=== PATIENT | female | born 1975 | race Caucasian/White ===

== ENCOUNTER 2024-07-17 13:32 | Emergency (ER) | payer SELFPAY ==
[2024-07-17 13:43] VITALS: BP 168/80; PULSE 91; RESP 18; TEMP 36.8; O2SAT 98; BMI 31.7
[2024-07-17 13:53] VITALS: BP 168/80; PULSE 91; RESP 18; TEMP 36.8; O2SAT 98
--- NOTE | 2024-07-17 13:53 | ED_ITS ---
HPI - Dental/Oral General Chief complaint: Dental/Oral Stated complaint: IV Antibiotics Sent by Urgent Care Time Seen by Provider: 07/17/24 13:49 Source: patient Mode of arrival: ambulatory Limitations: no limitations History of Present Illness ED Provider: ARIELLE LOZANO PA-C HPI Narrative: 48 year old female presents to the ED today requesting IV antibiotics. She reports following up with her dentist this morning for dental pain and left lower cheek swelling which began last night. She was prescribed PO antibiotics which she states were sent to her pharmacy today. She cannot recall the name of these. She has not yet picked up this prescription. She reports being told by her dentist to come to the ED for IV antibiotics because she needed something to work faster . She denies any associated fever, chills, odynophagia, dysphagia, neck pain. MD Complaint: tooth pain Related Data Allergies Allergy/AdvReac Type Severity Reaction Status Date / Time No Known Allergies Allergy Verified 07/17/24 13:47 Review of Systems Review of Systems: Constitutional: No fever, chills, fatigue, night sweats, weight changes ENT/Mouth: No ear pain, hearing loss, nasal congestion, sinus pain, rhinorrhea, sore throat, +dental pain Eyes: No eye pain, swelling, redness, vision changes, discharge Cardio: No chest pain, palpitations, HALL, orthopnea, peripheral edema Pulm: No SOB, cough, sputum, wheezing, dyspnea, hemoptysis GI: No nausea, vomiting, hematemesis, abdominal pain, diarrhea, constipation, hematochezia, melena : No irregular bleeding, dysuria, frequency, urgency, hesitancy, hematuria, flank pain, urinary flow changes, urinary incontinence or retention MSK: No back pain, neck pain, joint pain, myalgias Skin: No lesions, rashes Neuro: No weakness, numbness, paresthesias, LOC, dizziness, headache Psych: No anxiety/panic, depression, SI/HI, AH/VH All other systems reviewed and are negative. [facility] Past Medical History Attestation statement: The following information was validated with the patient. Source: old records reviewed and nursing notes reviewed Social History Social History Advance Directives: No Advance Directives Information Provided: Yes Do you have a plan to hurt others: No Plan Physical Exam Vital Signs: Vital Signs: Last Vital Signs Temp 98.3 F 07/17/24 13:53 Pulse 91 07/17/24 13:53 Resp 18 07/17/24 13:53 BP 168/80 H 07/17/24 13:53 Pulse Ox 98 07/17/24 13:53 O2 Del Method Room Air 07/17/24 13:53 BMI result Body Mass Index 31.7 Hypertensive, afebrile General: Well appearing, in no acute distress. Skin: Warm, dry, intact. No rashes or lesions. Head: Normocephalic, atraumatic. EENT: Hearing is intact b/l. Conjunctiva clear. Sclera is anicteric. PERRLA. EOM intact. +minimal swelling noted to L cheek. Tong ue and lips wnl. multiple dental caries and poor dentition. left lower #20-21 with localized periapical swelling to the buccal ginginva. No pointing. No active bleeding/ discharge. TTP. No palpable fluctuance. minimal edema to buccal mucosa without palpable fluctuance. Posterior oropharynx without erythema/edema. Uvula midline. Controlling secretions and speaking in complete sentences. No submandublar, submental or cervical LAD. no anterior neck swelling. Cardiac: Chest wall symmetric. RRR Lungs: Normal respiratory effort without accessory muscle use. CTA bilaterally Ext: Upper and lower extremities atraumatic, without tenderness, deformity, swelling or erythema. Full ROM throughout Neuro: AOx3. Normal speech. Ambulating with steady gait. Psych: Appropriate mood and affect. Responds appropriately to questions. Course Course Course Narrative: Patient noted to have dental infection. There is no evidence of abscess that warrants drainage at this time. Patient states a prescription for antibiotics was written for her by her dentist today. She has the written script in her car. Can not recall the name of this antibiotic. Advised to trial p.o. antibiotics. I do not see any indication for IV antibiotics/ admission. there is no concern for abscess or ludwigs angina. she has a follow up appointment with her dentist in 1 week for tooth extraction. Patient has remained stable throughout ED visit today. I discussed worrisome signs and symptoms and when to return to the ED. All questions answered at this time. Patient is agreeable with disposition and stable for discharge. Medical Decision Making Medical Decision Making MDM Narrative: 48 year old female presents to the ED today requesting IV antibiotics for dental infection. hypertensive, vitals are otherwise wnl. she is afebrile, well appearing and in NAD. no respiratory distress, airway patent. on exam minimal swelling noted to L cheek. Tongue and lips wnl. multiple dental caries and poor dentition. left lower #20-21 with localized periapical swelling to the buccal ginginva. No pointing. No active bleeding/ discharge. TTP. No palpable fluctuance. minimal edema to buccal mucosa without palpable fluctuance. Posterior oropharynx without erythema/edema. Uvula midline. Controlling secretions and speaking in complete sentences. No submandublar, submental or cervical LAD. no anterior neck swelling. Differential includes dental/ periapical infection. Unlikely mono, herpes, sialadenitis, sialolithiasis, dental abscess, [employer]OTECTION [employer], retropharyngeal abscess, deep neck infection, osteomyelitis, facial cellulitis/ abscess, lymphoma. Plan for pain control and discharge home with antibiotics and dentist follow up. Differential Diagnosis Differential Diagnoses: The differential diagnosis associated with the presentation includes as above. Admission/Observation Not indicated. Tests considered The following testing was considered but not selected: I considered obtaining a CT of the soft tissues neck however these is no evidence of ludwigs angina or concern for deep tissue infection. Not warranted at this time. No labs warranted. Prescription Management I considered prescription management with: Pain Medication and Antibiotic Social Determinants Patient?s care significantly limited by Social Determinants of Health including: Other Social Determinant of Health Critical Care Time Critical Care Time Critical Care Time: No Discharge Plan Discharge Clinical Impression: Dental infection Patient Disposition: Home, Self-Care Instructions: Toothache (ED), Mouth Care (ED) Additional Instructions: You were evaluated in ED today for dental pain. You have a dental infection. Your vitals are stable and exam is reassuring. Take the antibiotics that were prescribed to you to completion. Take this as prescribed and do not skip any doses. Take tylenol/ motrin at home as needed for pain. Make sure you follow up with your dentist. You have been provided with a referral to [facility]. They are currently taking new clients. Call them to make an appointment. They will not call you. Return with new or worsening symptoms. In the case of an emergency call 911. [facility]: [phone] [id number] [id number] Interventions: ED Discharge Assessment Last Done: 07/17/24 13:53 Discharge Date/Time: 07/17/24 13:55 Print Language: Korean
== END 2024-07-17 13:55 | disposition home or self-care (01) ==
PROVIDERS: Emergency Provider Emergency Medicine
DX: K04.7 Periapical abscess without sinus (principal)
CPT/HCPCS: 99282

== ENCOUNTER 2025-01-26 10:37 | Emergency (ER) | payer OTHER, SELFPAY ==
--- NOTE | ~2025-01-26 | XR_ITS ---
EXAMINATION: XR CHEST CLINICAL INFORMATION: cough COMPARISON: None available. TECHNIQUE: PA and lateral views. FINDINGS: Prominence of the interstitial markings. No hyperinflation. No consolidation, pleural effusion or pneumothorax. Cardiomediastinal silhouette size is normal. Mild multilevel thoracic spondylosis. XR/XR chest 2V IMPRESSION: Concerning acute small airway inflammatory process in the correct clinical settings. Electronically signed by: Jose Carlos Arrieta MD 01/26/2025 11:38 AM EST
--- NOTE | 2025-01-26 11:11 | ED_ITS ---
HPI - Dizziness General Chief Complaint: General Medical Stated Complaint: lightheaded, numbness in arms, body aches Time Seen by Provider: 01/26/25 17:51 Source: patient Mode of arrival: ambulatory Limitations: no limitations History of Present Illness ED Provider: Sirena Loya NP HPI Narrative: 49-year-old female with no significant medical history presents to the ED with chief complaint of feeling sick for the past 1-2 weeks, with an episode of vomiting that occurred at this morning. Patient reports that she is coughing, though it is nonproductive. She denies any specific chest pain, pressure, or palpitations. Reports a remote history of hypothyroidism but has not been on medications for several years given lack of insurance. Endorsing prior subjective fever and chills, but none actively. Her 2 daughters have also been sick with similar illnesses. Denies any abnormal skin rash, though does note that the lower legs has had small red simeon on them for about a week. No abdominal pain, nausea or vomiting, urinary complaints. No dizziness or lightheadedness, visual disturbances, room spinning sensation. Related Data Previous Rx's ?Medication ?Instructions ?Recorded prednisone 20 mg tablet 40 mg (2 x 20 mg) PO DAILY 5 days 01/26/25 #10 tabs Allergies Allergy/AdvReac Type Severity Reaction Status Date / Time No Known Allergies Allergy Verified 01/26/25 11:13 Review of Systems 2 Review of Systems: ROS is otherwise negative unless mentioned in HPI. [facility], [facility] Social History Social History Advance Directives: No Advance Directives Information Provided: No Physical Exam 2 Exam: Exam: Nursing notes and vital signs reviewed. Constitutional: Well-appearing, NAD. Alert. Oriented X3. Eyes: EOMI. ENT: Pharynx normal. Neck: Normal inspection. Neck supple. CVS: Normal heart rate and rhythm. Pulses normal. Respiratory: No respiratory distress. Breath sounds normal. Abdomen: Nondistended. Skin: Skin warm and dry. Normal skin color. Extremities: No lower extremity edema. Neuro: Oriented X 3. No motor deficit. Vital Signs: Vital Signs: Last Vital Signs Temp 98 F 01/26/25 11:12 Pulse 97 01/26/25 11:12 Resp 16 01/26/25 11:12 BP 200/89 H 01/26/25 11:12 Pulse Ox 100 01/26/25 11:12 O2 Del Method Room Air 01/26/25 11:12 BMI result Body Mass Index 31.6 Course Course Course Narrative: 49 yo female with no past medical history who has not been feeling well for 2 weeks, was exposed to the flu by her daughter. She reports she feels really weak. She threw up once today, lighttheaded. She is able to eat and drink but has a poor appetite. She keeps losing her voice but no sore throat. She has body aches. She has numbness in both arms and hands but more so in the right. SHe never had diarrhea. She she has no recent travel. She also notes a rash red dots on both legs. Her last year was about 1 week ago. Going to obtain reid labs, chest x-ray, urine, viral panel studies, Lyme series this is a RAPID medical screening exam the rest of the history and physical exam is to be done by the main provider. 11:14 AM 01/26/2025 (JOHNATHAN YE): Medical Decision Making Medical Decision Making [facility] Narrative: 6:49 PM 01/26/2025 (Sirena Loya NP): Upon my assessment of the patient, she overall appears well. Answering questions appropriately. She was seen by the triage provider. I reviewed the lab work at time of my assessment. CK is normal, COVID flu RSV is negative. Tick-borne illness panel will be sent out. [place] screen is negative. TSH is mildly high, but free T4 is flat. Possibly subclinical hypothyroidism, though less likely. She has a history of hypothyroid but does not have medication for several years, given lack of insurance. I will list her PCP to follow up with, as I offered doing T3 retesting in the ER today via send out, but she declined. I believe this is less likely a diagnoses of hypothyroidism. Additionally, she has some anemia. Her H&H here stable though at 8.2 and 30.2. We will need a repeat outpatient. Platelet counts are mildly high at 528, can also be checked again outpatient. Mild leukocytosis to 12, nonspecific. X-ray of chest shows no acute pneumonia. Does suggest reactive airway disease. This does appear to be viral in nature. Lungs CTA, normal heart sounds. Given the length of her symptoms, we will plan to treat the patient with oral prednisone. First dose given in the ED, and a prescription for this medication was provided as well. She expressed understanding with plan of care, it was given return precautions to the ED as well as PCP follow up. Differential Diagnosis Differential Diagnoses: The differential diagnosis associated with the presentation includes Lyme disease, mononucleosis, viral illness, pneumonia, anemia Admission/Observation Consideration of admission/observation: Escalation of care including admission/observation considered (Not indicated) Lab Data MDM Lab Attestation statement: I reviewed the patient's lab results. (Overall reassuring.) 01/26/25 11:41 01/26/25 11:41 Labs: Lab Results 01/26/25 Range/Units 11:41 WBC 12.0 H (4.8-10.8) X10*3/uL RBC 4.44 (4.20-5.50) X10*6/uL Hgb 8.2 L (12.0-16.0) g/dl Hct 30.2 L (37.0-47.0) % MCV 68.0 L (80.0-98.0) fL MCH 18.5 L (27.0-33.0) pg MCHC 27.2 L (31.0-35.0) g/dl RDW 22.0 H (11.0-16.0) % Plt Count 528 H (160-400) X10*3/uL MPV 9.7 (9.4-12.3) fL Immature Gran % (Auto) 1.3 H (0.0-0.4) % Neut % (Auto) 76.1 H (45-73) % Lymph % (Auto) 13.9 L (20-40) % [place] % (Auto) 6.7 (2-11) % Eos % (Auto) 1.7 (0-4) % Baso % (Auto) 0.3 (0-2) % Lymph # (Auto) 1.7 (1.2-4.9) X10*3/uL [place] # (Auto) 0.8 (0.1-1.2) X10*3/uL Eos # (Auto) 0.2 (0.0-0.4) X10*3/uL Baso # (Auto) 0.0 (0.0-0.2) X10*3/uL Abs Immat Gran (auto) 0.16 H (0.00-0.03) X10*3/uL Absolute Neuts (auto) 9.1 H (2.0-8.3) x10*3/uL Absolute Nucleated RBC 0.020 H (0.0-0.012) X10*3/uL Nucleated RBC % (auto) 0.2 (0.0-0.2) /100WBC Sodium 142 (135-145) mmol/L Potassium 3.8 (3.3-5.1) mmol/L Chloride 108 (96-108) mmol/L Carbon Dioxide 27 (22-29) mmol/L Anion Gap 11 L (12-20) BUN 11 (9-16) mg/dL Creatinine 0.65 (0.5-1.4) mg/dL Estim Creat Clear Calc 112.2 Estimated GFR > 60 Random Glucose 97 (60-115) mg/dL Calcium 9.0 (8.4-10.2) mg/dL Magnesium 2.2 (1.6-2.6) mg/dL Total Bilirubin 0.4 (0.0-1.0) mg/dL Direct Bilirubin 0.2 (0.0-0.5) mg/dL AST 26 (5-31) U/L ALT 20 (0-31) U/L Alkaline Phosphatase 76 (39-117) U/L Total Creatine Kinase 82 (26-140) U/L C-Reactive Protein < 0.10 (< or = 0.50) mg/dL Total Protein 8.1 H (6.5-8.0) g/dL Albumin 4.4 (3.5-5.0) g/dL Lipase 78 (8-78) U/L TSH 5.32 H (0.32-4.0) uIU/mL Free T4 0.89 (0.71-1.85) ng/dL Monoscreen Negative (Negative) Influenza Type A (PCR) NEGATIVE (Negative) Influenza Type B (PCR) NEGATIVE (Negative) RSV RNA Qual (PCR) NEGATIVE (Negative) SARS-CoV-2 RNA (RT-PCR) NEGATIVE (Negative) Independent Interpretation I performed an independent interpretation of an: EKG Interpretation: Rate: 82 Rhythm: NSR [place]: 114/139/143 Normal P waves. Normal [place]. Normal QRS complex. ST T wave : no dep, elev qTC: 429 prior studies: no previous available. The study has been interpreted contemporaneously by me. Radiology Impression Discussion of test interpretation with radiology: I have reviewed the radiologist's reading. Radiologist Impression: XR/XR chest 2V IMPRESSION: Concerning acute small airway inflammatory process in the correct clinical settings. Independent Historian None External Record Review None Chronic Conditions Patient?s care impacted by: Other (prior hypothyroid) Social Determinants Patient?s care significantly limited by Social Determinants of Health including: Problems related to primary support group and Problems related to employment Discharge Plan Discharge Clinical Impression: Viral illness Patient Disposition: Home, Self-Care Instructions: Viral Syndrome (ED) Additional Instructions: As we discussed, you had an extensive workup in the ER today. Your mononucleosis test was negative. Your Lyme testing is currently pending, we will contact you via phone with the results of this. Your TSH level is high, but the T4 level is normal. I recommend he have additional thyroid testing done with your PCP outpatient. The x-ray of your chest showed no acute pneumonia, an EKG was reassuring. The viral panel also shows no evidence of COVID, flu, RSV. It is possible you have a viral illness at this time. To treat your viral illness as well as the suspected viral rash on lower legs, I have ordered a prescription for prednisone. You were given the 1st dose in the ER. I have sent a prescription for this medication to your pharmacy. With any new, worsening complaints at any time, seek re-evaluation in the ED. I would like for you to be seen by a primary care provider within the next 1-2 weeks. It would be helpful for them to repeat your thyroid testing, as well as your blood work for anemia. Prescriptions: New prednisone 20 mg tablet 40 mg PO DAILY 5 Days Qty: 10 0RF Referrals: [facility] [place] Group, Family Practice] Print Language: Spanish
[2025-01-26 11:12] VITALS: BP 200/89; PULSE 97; RESP 16; TEMP 36.6; O2SAT 100; BMI 31.6
--- NOTE | 2025-01-26 11:13 | ECG_ITS ---
Test Reason : weakness Blood Pressure : */* mmHG Vent. Rate : 82 BPM Atrial Rate : 82 BPM P-R Int : 140 ms QRS Dur : 90 ms QT Int : 368 ms P-R-T Axes : 114 139 143 degrees QTcB Int : 429 ms Suspect limb lead reversal, interpretation assumes no reversal Normal sinus rhythm Right axis deviation Lateral infarct Abnormal ECG No previous ECGs available Referred By: Renetta Celis Electronically Signed By: Andrea Vaz
[2025-01-26 12:03] LABS: MANUAL DIFF FLAG NO
[2025-01-26 12:06] LABS: Hematocrit 30.2 % (37.0-47.0); Hemoglobin 8.2 g/dl (12.0-16.0); Imm Gran Abs Auto 0.16 X10*3/uL (0.00-0.03); Imm Gran Pct Auto 1.3 % (0.0-0.4); Lymphocytes Absolute Auto 1.7 X10*3/uL (1.2-4.9); Mean Corpuscular HGB Conc 27.2 g/dl (31.0-35.0); Mean Corpuscular Hemoglobin 18.5 pg (27.0-33.0); Mean Corpuscular Volume 68.0 fL (80.0-98.0); NRBC Abs Auto 0.020 X10*3/uL (0.0-0.012); NRBC Pct Auto 0.2 /100WBC (0.0-0.2); Platelet Count 528 X10*3/uL (160-400); Red Blood Count 4.44 X10*6/uL (4.20-5.50); White Blood Count 12.0 X10*3/uL (4.8-10.8)
[2025-01-26 12:24] LABS: Alanine Aminotransferase 20 U/L (0-31); Albumin Level 4.4 g/dL (3.5-5.0); Alkaline Phosphatase 76 U/L (39-117); Anion Gap 11 (12-20); Aspartate Amino Transferase 26 U/L (5-31); Blood Urea Nitrogen 11 mg/dL (9-16); Calcium 9.0 mg/dL (8.4-10.2); Carbon Dioxide 27 mmol/L (22-29); Chloride 108 mmol/L (96-108); Creatinine Clr Calc Pharmacy 112.2; Estimated Glomerular Filt Rate > 60; Lipase 78 U/L (8-78); Magnesium 2.2 mg/dL (1.6-2.6); Potassium 3.8 mmol/L (3.3-5.1); Sodium 142 mmol/L (135-145); Total Protein 8.1 g/dL (6.5-8.0)
[2025-01-26 12:47] LABS: Resp Syncy Virus RNA Qual PCR NEGATIVE (Negative); SARS COV2 PCR INHOUSE NEGATIVE (Negative)
[2025-01-26 13:55] LABS: Free T4 (Free Thyroxine) 0.89 ng/dL (0.71-1.85)
[2025-01-26 19:35] VITALS: BP 129/87; PULSE 81; RESP 18; TEMP 36.4; O2SAT 100
[2025-01-27 07:28] LABS: Lyme Abs Screen <0.90 index
[2025-01-27 21:54] LABS: A. Phagocytphilium DNA,RT-PCR NOT DETECTED (NOT DETECTED); Babesia Microti DNA, RT-PCR NOT DETECTED (NOT DETECTED); Borrelia Miyamotoi,DNA RT-PCR NOT DETECTED (NOT DETECTED); E.Chaffeensis DNA RT-PCR NOT DETECTED (NOT DETECTED); Lyme(Borrelia ssp)DNA RT-PCR NOT DETECTED (NOT DETECTED)
== END 2025-01-26 19:36 | disposition home or self-care (01) ==
PROVIDERS: Emergency Medicine; Emergency Provider Emergency Medicine
DX: B34.9 Viral infection, unspecified (principal); R42 Dizziness and giddiness; R20.0 Anesthesia of skin; M79.10 Myalgia, unspecified site; Z03.818 Encounter for observation for suspected exposure to other biological agents ruled out; R53.1 Weakness; R05.9 Cough, unspecified
CPT/HCPCS: 36415; 71046; 80048; 80076; 82550; 83690; 83735; 84439; 84443; 85025; 86140; 86308; 86617; 86618; 87468; 87469; 87478; 87484; 87637; 87798; 93005; 99283

== ENCOUNTER → 2025-01-26 11:14 | Outpatient (BNV) | payer SELFPAY | PROVIDERS: Visit Provider Radiology Diagnostic Radiology | DX: R05.9 Cough, unspecified (principal) | CPT/HCPCS: 71046 ==